=== PATIENT | male | born 1975 | race Caucasian/White ===

== ENCOUNTER 2017-12-11 06:25 | Outpatient (CLI) | payer BC ==
[2017-12-11 06:35] LABS: #Basophils 0.1 thou/uL (0.0-0.2); #Eosinphils 0.1 thou/uL (0.0-0.7); #Lymphocytes 2.1 thou/uL (1.20-3.40); #Monocytes 0.6 thou/uL (0.11-0.59); #Neutrophils 2.8 thou/uL (1.40-6.50); %Basophils 1.2 % (0.0-1.0); %Eosinophils 2.6 % (0.0-10.0); %Lymphocytes 36.9 % (21.0-51.0); %Neutrophils 49.4 % (42.0-75.0); Hemoglobin 15.1 g/dL (14.0-18.0); Mean Corpuscular HGB CONC 35.7 g/dL (32.0-36.0); Mean Corpuscular Hemoglobin 32.8 pg (27.0-31.0); Mean Corpuscular Volume 91.8 fL (78.0-98.0); Mean Platelet Volume 8.2 fL (7.4-10.4); Platelet Count 219 thou/uL (130-400); RBC Distribution Width 12.4 % (11.5-14.5); White Blood Cell (WBC) Count 5.6 thou/uL (4.8-10.8)
[2017-12-11 06:57] LABS: ALT (SGPT) 23 U/L (8-55); AST (SGOT) 23 U/L (5-34); Albumin 4.2 g/dL (3.5-5.0); Alkaline Phosphatase 57 U/L (40-150); Anion Gap 14 mmol/L (10-20); BUN (Urea Nitrogen) 10 mg/dL (8.9-20.6); Bilirubin, Total 0.4 mg/dL (0.2-1.2); Calc. Creatinine Clearance 0 mL/min (70-130); Calcium 9.2 mg/dL (7.8-10.44); Carbon Dioxide 21 mmol/L (22-29); Cardiac Risk 3.3 (Less than 4.5); Chloride 108 mmol/L (98-107); Cholesterol 148 mg/dl (< 200 Desired); Estimated GFR-MDRD 84; Globulin 3.1 g/dL (2.4-3.5); Glucose 112 mg/dL (70-105); HDL Cholesterol 45 mg/dL (>60 Neg Risk); LDL Cholesterol, Calculated 56 mg/dL; Potassium 3.7 mmol/L (3.5-5.1); Protein, Total 7.3 g/dL (6.0-8.3); Sodium 139 mmol/L (136-145); Triglycerides 237 mg/dL (Less than 150)
[2017-12-11 09:55] LABS: Bilirubin Negative (Negative); Blood, Urine Negative (Negative); Clarity CLEAR (Clear); Glucose, Urine (Dipstick) Negative (Negative); Leukocyte Negative (Negative); Nitrite Negative (Negative); Protein, Urine (Dipstick) Negative (Neg-Trace); Specific Gravity, Urine 1.005 (1.002-1.036); Urobilinogen 0.2 mg/dL (0.2-1.0)
[2017-12-11 09:58] LABS: Bacteria/HPF None Seen HPF (None Seen); Hyaline Casts/LPF 0-3 HYALINE CAST LPF (0-3 Hyaline); RBC/HPF 0-3 HPF (0-3); Squamous Epithelial None Seen HPF (0-3); WBC/HPF None Seen HPF (0-3)
== END 2017-12-11 06:26 ==
LOC: LAB 06:25
PROVIDERS: ATTEND Family Medicine
DX: Z00.00 Encounter for general adult medical examination without abnormal findings (principal)
CPT/HCPCS: 36415; 80053; 80061; 81001; 84443; 85025

== ENCOUNTER 2020-04-25 09:35 | Outpatient (CLI) | payer BC ==
--- NOTE | 2020-04-25 10:19 | ULT ---
Exam: Testicular ultrasound HISTORY: Left scrotal mass. COMPARISON: None TECHNIQUE: Sagittal and transverse imaging of the left and right hemiscrotum are performed. Testicula r Doppler is performed with grayscale, color-flow, Doppler imaging and spectral waveform analysis. FINDINGS: Right hemiscrotum: Testicle: Homogeneous echotexture. No intratesticular masses. Right testicle measurements: 3.3 x 5.0 x 3.3 Right epididymis: Normal echotexture. Right epididymis measurements: 1.2 x 1.4 cm Hydrocele: Small Left hemiscrotum: Left testicle: Homogeneous echotexture. No intratesticular masses. Left testicle measurements: 5.2 x 2.8 x 3 point cm Left epididymis: Multiple anechoic foci occupy the left epididymis, compatible with multiple epididym al cysts. Margin Analyst cyst measures 0.8 x 0.9 x 0.9 cm. Additional smaller cysts are identified. Left epididymis measurements:0.9 x 1.5 cm Hydrocele: Small Testicular Doppler: There is symmetric vascular flow to the left and right testicle. IMPRESSION: 1. Multiple left epididymal cysts.
== END 2020-04-25 09:36 | disposition home or self-care (01) ==
LOC: ULT 09:35
PROVIDERS: ATTEND Urology
DX: N50.89 Other specified disorders of the male genital organs (principal); N50.3 Cyst of epididymis
CPT/HCPCS: 76870; 93976